=== PATIENT | male | born 1950 | race Caucasian/White ===

== ENCOUNTER 2019-03-23 07:50 | Day surgery (SDC) | payer MEDICARE ==
[2019-03-20 10:31] VITALS: BMI 34.4
[2019-03-23] MEDS ORDERED: Lidocaine 1% PF 5 ML VIAL ONE (09:56)
[2019-03-23] MEDS ORDERED: PROPOFOL 200 MG/20 ML VIAL ONE (09:56)
--- NOTE | 2019-03-23 11:10 | OP ---
DATE OF PROCEDURE: 03/23/2019 PROCEDURE PERFORMED: Colonoscopy with snare polypectomy. PREOPERATIVE DIAGNOSIS: Change in bowel habits. DESCRIPTION OF PROCEDURE: Informed consent was obtained from the patient. He was sedated with total intravenous anesthesia. The rectal exam was performed and was normal. Colonoscope was advanced at the terminal ileum without difficulty. The mucosa of the terminal ileum was normal. The ileocecal valve and appendiceal orifice were clearly identified. The preparation quality was fair and ascending colon was adequate in the rest of the colon. I removed four polyps by cold snare polypectomy from the cecum. They measured 4 to 5 mm for three of the polyps. One of the polyps was a 6 mm polyp; however, extra purchase of the tissue did create a larger defect. Two hemoclips were placed over the polypectomy site with good hemostasis confirmed. Two polyps measuring 4 to 5 mm were removed from the ascending colon by cold snare polypectomy. There was [id number] diverticulosis in the left colon. I removed a 10 mm polyp from the descending colon by snare cautery polypectomy. I removed a 6 mm polyp from the descending colon by snare cautery polypectomy. Large internal hemorrhoids were noted on retroflexed views in the rectum. The remainder of the colonic and rectal mucosa was unremarkable. IMPRESSION: 1. Four polyps in the cecum removed by cold snare polypectomy. 2. Ascending two polyps removed. 3. Two polyps removed by snare cautery polypectomy from the descending colon. 4. [id number] left-sided diverticulosis. 5. Two hemoclips were placed over the polypectomy site in the cecum. RECOMMENDATIONS: 1. Await histopathology. 2. Repeat colonoscopy in one year for surveillance. Job ID: [id number]
== END 2019-03-23 11:05 | disposition home or self-care (01) ==
LOC: SDC 07:50
PROVIDERS: ATTEND Internal Medicine Gastroenterology
PROC: 0DBK8ZX Excision of Ascending Colon, Via Natural or Artificial Opening Endoscopic, Diagnostic (ICD-10-PCS; principal; 2019-03-23)
PROC: 0DBM8ZX Excision of Descending Colon, Via Natural or Artificial Opening Endoscopic, Diagnostic (ICD-10-PCS; 2019-03-23)
PROC: 0DBH8ZX Excision of Cecum, Via Natural or Artificial Opening Endoscopic, Diagnostic (ICD-10-PCS; 2019-03-23)
DX: D12.0 Benign neoplasm of cecum (principal); D12.2 Benign neoplasm of ascending colon; D12.3 Benign neoplasm of transverse colon; D12.4 Benign neoplasm of descending colon; K57.30 Diverticulosis of large intestine without perforation or abscess without bleeding; K64.8 Other hemorrhoids; E89.2 Postprocedural hypoparathyroidism; I11.0 Hypertensive heart disease with heart failure; I50.9 Heart failure, unspecified; F41.9 Anxiety disorder, unspecified; J45.909 Unspecified asthma, uncomplicated; M19.90 Unspecified osteoarthritis, unspecified site; Z86.010 Personal history of colon polyps; Z79.899 Other long term (current) drug therapy; Z88.8 Allergy status to other drugs, medicaments and biological substances; Z95.810 Presence of automatic (implantable) cardiac defibrillator
CPT/HCPCS: 88305

== ENCOUNTER 2020-05-25 21:57 | Emergency (ER) | payer MEDICARE ==
[2020-05-25 22:33] LABS: Mean Corpuscular HGB CONC 33.1 g/dL (32.0-36.0); Mean Corpuscular Hemoglobin 29.5 pg (27.0-31.0); RBC Distribution Width 13.5 % (11.5-14.5); Red Blood Cell (RBC) Count 5.42 mill/uL (4.70-6.10); White Blood Cell (WBC) Count 5.8 thou/uL (4.8-10.8)
[2020-05-25 22:49] LABS: Band 2 % (5-11); Eosinophils 2 % (0-10); Lymphocytes 15 % (21-51); MDiff Complete? YES; Mean Platelet Volume 7.8 fL (7.4-10.4); Monocytes 9 % (0-10); Neutrophil 67 % (42-75); Platelet Count 137 thou/uL (130-400); Platelet Morphology Comment Appears Adequate; RBC Morphology Normal; Reactive Lymphocytes 5 % (0-10)
[2020-05-25] MEDS ORDERED: Aspirin Chewable 81 MG TAB ONE (22:54)
[2020-05-25 22:55] LABS: ALT (SGPT) 13 U/L (8-55); AST (SGOT) 24 U/L (5-34); Albumin 3.8 g/dL (3.4-4.8); Alkaline Phosphatase 54 U/L (40-110); Anion Gap 19 mmol/L (10-20); BUN (Urea Nitrogen) 34 mg/dL (8.4-25.7); Bilirubin, Total 0.4 mg/dL (0.2-1.2); Calc. Creatinine Clearance 0 mL/min (70-130); Calcium 9.1 mg/dL (7.8-10.44); Carbon Dioxide 22 mmol/L (23-31); Chloride 105 mmol/L (98-107); Glucose 95 mg/dL (80-115); Protein, Total 6.8 g/dL (5.8-8.1); Sodium 142 mmol/L (136-145)
[2020-05-25 23:23] LABS: Digoxin 0.21 ng/mL (0.8-2.0)
[2020-05-26] MEDS ORDERED: Acetaminophen 325 MG TAB PO PRN (02:44)
[2020-05-26] MEDS ORDERED: Guaifenesin DM 100-10/5 ML UDCUP PO PRN (02:46)
[2020-05-26] MEDS ORDERED: Digoxin 0.125 MG TAB PO SCH (03:00)
[2020-05-26] MEDS ORDERED: Sodium Chloride 0.9% 500 ML IV SCH (03:00)
[2020-05-26] MEDS ORDERED: Albuterol 200 PUFF (6.7GM INHALER) INH PRN (03:14)
[2020-05-26] MEDS ORDERED: Mometasone 100 MCG/Formoterol 5 MCG 120 PUFF INHALER INH SCH (06:30)
[2020-05-26] MEDS ORDERED: Albuterol 200 PUFF (6.7GM INHALER) INH SCH (06:30)
[2020-05-26] MEDS ORDERED: Magnesium Oxide 400 MG TAB PO SCH (09:00)
[2020-05-26] MEDS ORDERED: Allopurinol 100 MG TAB PO SCH (09:00)
[2020-05-26] MEDS ORDERED: Atorvastatin Calcium 10 MG TAB PO SCH (09:00)
[2020-05-26] MEDS ORDERED: Potassium Chloride 10 MEQ TAB PO SCH (09:00)
[2020-05-26] MEDS ORDERED: SALSALATE 750 MG PO SCH (09:00)
[2020-05-26] MEDS ORDERED: Donepezil HCl 10 MG TAB PO SCH (09:00)
[2020-05-26] MEDS ORDERED: Famotidine 20 MG TAB PO SCH (09:00)
[2020-05-26] MEDS ORDERED: Multivitamin W/ Minerals 1 TAB PO SCH (09:00)
[2020-05-26] MEDS ORDERED: EPLERENONE 25 MG PO SCH (09:00)
[2020-05-26] MEDS ORDERED: Acyclovir 800 mg Tablet PO SCH ×2 (09:00)
[2020-05-26] MEDS ORDERED: Enoxaparin Sodium 30 MG/0.3 ML SYRINGE SC SCH (09:00)
[2020-05-26] MEDS ORDERED: Metoprolol Tartrate 25 MG TAB PO SCH (09:00)
[2020-05-26] MEDS ORDERED: clonazePAM 1 MG TAB PO SCH (21:00)
[2020-05-26] MEDS ORDERED: hydrOXYzine 25 MG TAB PO SCH (21:00)
== END 2020-05-26 01:43 | disposition short-term general hospital (02) ==
LOC: ERS 21:57
DX: T82.199A Other mechanical complication of unspecified cardiac device, initial encounter (principal); I49.01 Ventricular fibrillation; K21.9 Gastro-esophageal reflux disease without esophagitis; E78.5 Hyperlipidemia, unspecified; E78.00 Pure hypercholesterolemia, unspecified; M19.90 Unspecified osteoarthritis, unspecified site; J45.909 Unspecified asthma, uncomplicated; M10.9 Gout, unspecified; I11.0 Hypertensive heart disease with heart failure; I50.9 Heart failure, unspecified; Z79.899 Other long term (current) drug therapy
CPT/HCPCS: 70450; 71045; 80053; 80162; 84484; 85025; 93005

== ENCOUNTER 2022-01-19 09:50 | Outpatient (CLI) | payer MEDICARE | END 2022-01-19 09:51 | disposition home or self-care (01) | LOC: BICRAD 09:50 | PROVIDERS: ATTEND Podiatrist | DX: M19.072 Primary osteoarthritis, left ankle and foot (principal) ==

== ENCOUNTER 2022-05-03 05:33 | Day surgery (SDC) | payer MEDICARE ==
[2022-05-01 11:17] VITALS: BMI 31.5
[2022-05-03] MEDS ORDERED: Ketamine 50 MG/ML (10ML VIAL) ONE (06:51)
[2022-05-03] MEDS ORDERED: PROPOFOL 200 MG/20 ML VIAL ONE (07:54)
[2022-05-03] MEDS ORDERED: Lidocaine 1% PF 5 ML VIAL ONE (07:54)
== END 2022-05-03 09:15 | disposition home or self-care (01) ==
LOC: SDC 05:33
PROVIDERS: ATTEND Internal Medicine Gastroenterology
PROC: 0DBK8ZX Excision of Ascending Colon, Via Natural or Artificial Opening Endoscopic, Diagnostic (ICD-10-PCS; principal; 2022-05-03)
PROC: 0DBN8ZX Excision of Sigmoid Colon, Via Natural or Artificial Opening Endoscopic, Diagnostic (ICD-10-PCS; 2022-05-03)
PROC: 0DBM8ZX Excision of Descending Colon, Via Natural or Artificial Opening Endoscopic, Diagnostic (ICD-10-PCS; 2022-05-03)
PROC: 0DBH8ZX Excision of Cecum, Via Natural or Artificial Opening Endoscopic, Diagnostic (ICD-10-PCS; 2022-05-03)
DX: Z12.11 Encounter for screening for malignant neoplasm of colon (principal); K51.40 Inflammatory polyps of colon without complications; D12.2 Benign neoplasm of ascending colon; D12.4 Benign neoplasm of descending colon; D12.5 Benign neoplasm of sigmoid colon; K57.30 Diverticulosis of large intestine without perforation or abscess without bleeding; I11.0 Hypertensive heart disease with heart failure; I50.9 Heart failure, unspecified; J45.909 Unspecified asthma, uncomplicated; Z86.010 Personal history of colon polyps; Z79.899 Other long term (current) drug therapy; Z88.8 Allergy status to other drugs, medicaments and biological substances; Z95.810 Presence of automatic (implantable) cardiac defibrillator
CPT/HCPCS: 88305; J2704

== ENCOUNTER 2022-11-08 10:14 | Outpatient (CLI) | payer MEDICARE | END 2022-11-08 10:15 | disposition home or self-care (01) | LOC: RAD 10:14 | PROVIDERS: ATTEND Podiatrist | DX: M79.674 Pain in right toe(s) (principal); M85.871 Other specified disorders of bone density and structure, right ankle and foot ==

== ENCOUNTER 2024-03-31 21:31 | Emergency (ER) | payer MEDICARE ==
[2024-04-01 01:00] LABS: #Basophils 0.05 10x3/uL (0.0-0.2); %Basophils 0.8 % (0.0-1.0); %Lymphocytes 19.1 % (21.0-51.0); %Neutrophils 68.9 % (42.0-75.0); Hematocrit 56.2 % (42.0-52.0); Hemoglobin 18.9 g/dL (14.0-18.0); Mean Corpuscular HGB CONC 33.6 g/dL (32.0-36.0); Mean Corpuscular Hemoglobin 29.4 pg (27.0-31.0); Mean Corpuscular Volume 87.5 fL (78.0-98.0); Mean Platelet Volume 9.8 fL (7.4-10.4); Platelet Count 150 10x3/uL (130-400); RBC Distribution Width 13.4 % (11.5-14.5); Red Blood Cell (RBC) Count 6.42 mill/uL (4.70-6.10)
== END 2024-04-01 01:50 | disposition home or self-care (01) ==
LOC: ERS 21:31
DX: S02.2XXA Fracture of nasal bones, initial encounter for closed fracture (principal); I11.0 Hypertensive heart disease with heart failure; I50.9 Heart failure, unspecified; Y04.2XXA Assault by strike against or bumped into by another person, initial encounter
CPT/HCPCS: 36415; 70486; 85025